=== PATIENT | female | born 1990 | race Caucasian/White ===

== ENCOUNTER 2017-06-26 09:42 | Emergency (ER) | payer BC ==
[2017-06-26 10:57] LABS: ABS Basophils 0 10^3/ul (0-0.2); ABS Eosinophils 0 10^3/ul (0-0.6); ABS Lymphocytes 0.8 10^3/ul (1.0-4.8); ABS Monocytes 0.3 10^3/ul (0-0.8); ABS Neutrophils 3.6 10^3/ul (1.5-7.7); ABS Nucleated RBC 0 10^3/ul; Eosinophil % 0.1 % (0-6); Hematocrit 43 % (35-47); Lymphocyte % 17.2 % (25-47); Mean Corpuscular HGB Conc 35 g/dl (31-36); Mean Corpuscular Hemoglobin 32 pg (27-31); Mean Corpuscular Volume 92 fL (80-97); Mean Platelet Volume 7.5 um3 (7.4-10.4); Nucleated Red Blood Cells % 0; Platelet Count 234 10^3/ul (150-450); Red Blood Count 4.72 10^6/ul (4.0-5.4); Red Cell Distribution Width 13 % (10.5-15); Urine Appearance Clear; Urine Blood Negative (Negative); Urine Color Straw; Urine Ketones Negative (Negative); Urine Protein Negative (Negative); Urine Specific Gravity 1.005 (1.010-1.030); Urine Urobilinogen Negative (Negative); White Blood Count 4.8 10^3/ul (3.5-10.8)
[2017-06-26] MEDS ORDERED: Iohexol 300* (CONTRAST) 10 ML SDV IV ONE (11:35)
[2017-06-26] MEDS ORDERED: Ketorolac INJ* 30 MG/ML 1 ML VIAL IV PUSH ONE (12:05)
--- NOTE | 2017-06-26 13:13 | RAD ---
CLINICAL HISTORY: Abdominal pain COMPARISON: May 09, 2017 TECHNIQUE: Multiple contiguous axial CT scans were obtained of the abdomen and pelvis after the administration of intravenous contrast. Coronal and sagittal multiplanar reformations are submitted for review. FINDINGS: LUNG BASES: The lung bases are clear. LIVER: The right lobe of liver is somewhat heterogeneous attenuation. This resolves on delayed images. BILE DUCTS: There is no intrahepatic or extrahepatic biliary dilatation. GALLBLADDER: The gallbladder is normal, without pericholecystic inflammatory change. PANCREAS: The pancreas is normal, without mass or ductal dilatation. SPLEEN: Normal in size and appearance. UPPER GI TRACT: Evaluation of the gastrointestinal tract is limited by incomplete gastric distention. The upper GI tract is unremarkable. SMALL BOWEL AND MESENTERY: The small bowel is normal in contour, course, and caliber. There is no obstruction or dilatation. COLON: The colon is normal in contour, course, caliber. There is no pericolonic inflammatory change. There is large amount of stool within the proximal and transverse colon. The distal colon is relatively decompressed. The appendix is not well-visualized. There is no inflammatory change within the right lower quadrant. ADRENALS: Normal bilaterally. KIDNEYS: The kidneys are normal in shape, size, contour, and axis. There is no hydronephrosis or nephrolithiasis. BLADDER: The bladder is smooth in contour. PELVIC ORGANS: The uterus and adnexa are grossly normal for technique. AORTA: The aorta is normal. IVC: Unremarkable LYMPH NODES: There is no lymphadenopathy by size criteria. ABDOMINAL WALL: There is no evidence for abdominal wall hernia. BONES AND SOFT TISSUES: Unremarkable OTHER: None IMPRESSION: 1. THE RIGHT LOBE OF THE LIVER IS MILDLY HETEROGENEOUS THAT RESOLVES ON DELAYED IMAGES, SUGGESTIVE OF A TRANSIENT HEPATIC ATTENUATION DIFFERENCE. THERE IS NO FOCAL HEPATIC PARENCHYMAL MASS. RECOMMEND CORRELATION WITH SERUM MARKERS OF HEPATIC DYSFUNCTION. 2. OTHERWISE UNREMARKABLE CT OF THE ABDOMEN AND PELVIS.
[2017-06-26 14:29] VITALS: BP 112/86
--- NOTE | 2017-06-28 10:56 | ED ---
Wei Putnam Angela, scribed for Froylan Perez MD on 06/26/17 at 1111 . Abdominal Pain/Female - HPI Summary HPI Summary: This pt is a 26 y/o female presenting to [facility] c/o intermittent left sided abd pain for approximately 6 months. Pt reports left abd pain radiates to her left sided back. She rates her pain 6/10 in severity. Pt notes the consistency of her stool is intermittent between loose and solid. She reports she has had approximately 3 bowel movements every day for the past week. Denies nausea, vomiting, constipation, diarrhea, fever. Last night pt states she had chills. LMP: 2 months ago, she reports she missed her last period. Denies chance of . Pt is not sexually active. - History of Current Complaint Chief Complaint: EDAbdPain Stated Complaint: ABD PAIN Time Seen by Provider: 06/26/17 09:46 Hx Obtained From: Patient Onset/Duration: Lasting Days, Still Present Timing: Days Severity Currently: Moderate Pain Intensity: 5 Pain Scale Used: 0-10 Numeric Location: Discrete At: LUQ Radiates: Yes Radiates to: Back - left sided Aggravating Factor(s): Nothing Alleviating Factor(s): Nothing Associated Signs and Symptoms: Positive: Other: - POS: chills last night. 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 Negative: Fever ENT: Negative Cardiovascular: Negative Positive: Abdominal Pain. Negative: Vomiting, Diarrhea, Nausea, Other - constipation Musculoskeletal: Negative Skin: Negative Neurological: Negative All Other Systems Reviewed And Are Negative: Yes Physical Exam - Summary Physical Exam Summary: VITAL SIGNS: Reviewed. GENERAL: Patient is a well-developed and nourished female who is lying comfortable in the stretcher. Patient is not in any acute respiratory distress. HEAD AND FACE: Normocephalic and atraumatic. EYES: PERRLA, EOMI x 2, No injected conjunctiva. EARS: Hearing grossly intact. Ear canals and tympanic membranes are WNL. MOUTH: Oropharynx within normal limits. NECK: Supple, trachea is midline, no adenopathy, no JVD. CHEST: Symmetric, no tenderness at palpation LUNGS: Clear to auscultation bilaterally. No wheezing or crackles. CVS: RRR, S1 and S2 present, no murmurs or gallops appreciated. ABDOMEN: Soft. Left upper quadrant tenderness. No signs of distention. Positive bowel sounds. No rebound no guarding, and no masses palpated. No abdominal bruit or pulsations. EXTREMITIES: FROM in all major joints, no edema, no cyanosis or clubbing. NEURO: Alert and oriented x 3. No acute neurological deficits. Speech is normal. SKIN: Dry and warm Triage Information Reviewed: Yes Vital Signs On Initial Exam: Initial Vitals Temp Pulse Resp BP Pulse Ox 99.8 F 79 14 119/84 100 06/26/17 09:46 06/26/17 09:46 06/26/17 09:46 06/26/17 09:46 06/26/17 09:46 Vital Signs Reviewed: Yes Diagnostics - Vital Signs Vital Signs Temp Pulse Resp BP Pulse Ox 06/26/17 09:46 99.8 F 79 14 119/84 100 - Laboratory Result Diagrams: 06/26/17 10:36 06/26/17 10:36 Lab Statement: Any lab studies that have been ordered have been reviewed, and results considered in the medical decision making process. - CT Abdomen/Pelvis CT CT Interpretation: Positive (See Comments) - IMPRESSION: 1. The right lobe of the liver is mildly heterogeneous that resolves on delayed images, suggestive of a transient hepatic attenuation difference. There is no focal hepatic parenchymal mass. Recommend correlation with serum markers of hepatic dysfunction. 2. Otherwise unremarkable CT of the abdomen and pelvis. Dr. Perez has reviewed this radiology report. CT Interpretation Completed By: Radiologist Re-Evaluation - Re-Evaluation First Eval Re-Evaluation Time: 14:22 Comment: I reviewed the lab and CT results with the pt. Pt will be discharged home. Abdominal Pain Fem Course/Dx - Course Course Of Treatment: This pt is a 26 y/o female presenting to [facility] c/o intermittent left sided abd pain for approximately 6 months. Pt reports left abd pain radiates to her left sided back. She rates her pain 6/10 in severity. Pt notes the consistency of her stool is intermittent between loose and solid. She reports she has had approximately 3 bowel movements every day for the past week. Denies nausea, vomiting, constipation, diarrhea, fever. Last night pt states she had chills. LMP: 2 months ago, she reports she missed her last period. Denies chance of . Pt is not sexually active. Test results without any significant abnormalities. Urinalysis is negative for UTI. Abdomen/ Pelvis CT shows 1. The right lobe of the liver is mildly heterogeneous that resolves on delayed images, suggestive of a transient hepatic attenuation difference. There is no focal hepatic parenchymal mass. Recommend correlation with serum markers of hepatic dysfunction. 2. Otherwise unremarkable CT of the abdomen and pelvis. In the ED course the pt was given Toradol for the pain. After this medication the pt is feeling better. Therefore she will be discharged to home with follow up from her PCP. I discussed all the findings and test results with the patient. All questions were answered to patient satisfaction. There were no further complaints or concerns. She is instructed to return to the ED for any worsening or new symptoms. Pt is hemodynamically stable, alert and oriented x3. - Diagnoses Provider Diagnoses: Abdominal pain, left upper quadrant, Left sided abdominal pain Discharge - Sign-Out/Discharge Documenting (check all that apply): Discharge - discharge to home - Discharge Plan Condition: Stable Disposition: HOME Patient Education Materials: Abdominal Pain (ED) Referrals: Anand Lee MD [Primary Care Provider] - 3 Days Additional Instructions: Please follow up with your primary care provider. RETURN TO THE ED FOR ANY NEW OR WORSENING SYMPTOMS. The documentation as recorded by the Wei campos Angela accurately reflects the service I personally performed and the decisions made by me, Froylan Perez MD.
== END 2017-06-26 14:27 | disposition home or self-care (01) ==
LOC: ED 09:42
DX: R10.12 Left upper quadrant pain (principal); R68.83 Chills (without fever); Z32.02 Encounter for pregnancy test, result negative; Z85.850 Personal history of malignant neoplasm of thyroid
CPT/HCPCS: 36415; 74177; 80053; 81003; 82550; 83690; 84702; 85025; 86140; 96374; 99282; J1885; Q9967

== ENCOUNTER 2018-09-30 17:01 | Emergency (ER) | payer BC ==
--- OUTSIDE RECORDS SUMMARY | 2018-09-30 17:32 | XMS REPORT | Continuity of Care Document ---
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 Anand Lee MD Primary Care Physician Unavailable Payers Date Identification Numbers Payment Provider Subscriber Policy Number: [id number] [facility] Marti Crenshaw PayID: [id number] [address] [place] [address] Family History Date Family Member(s) Observation Comments General Diabetes MGF, PGF General Obesity PGF General Congestive Heart Failure (CHF) MGM- d/t Social History Type Date Description Comments Sex Unknown Marital Status Single Occupation Currently Working [employer] [employer]) ETOH Use consumes 1-2 glasses of wine per day Tobacco Use Start: Unknown Patient has never smoked Recreational Drug Use Denies Drug Use Smoking Status Reviewed: 09/10/18 Patient has never smoked Exercise Type/Frequency Exercises regularly Allergies, Adverse Reactions, Alerts Active Allergies Reaction Severity Comments Date Nicotinamide Adenine Dinucleotide (Nad) 09/04/2018 Medications Active Medications SIG Qnty Indications Ordering Provider Date Omeprazole 1 by mouth Unknown 20mg Capsules DR every day Levothyroxine Sodium 1 by mouth Unknown 150mcg every day Tablets Loestrin 20 (21) 1 by mouth Unknown 1-20mg-mcg every day Tablets Zyrtec Allergy 1 by mouth Unknown 10mg Tablets every day prn Vital Signs Date Vital Result Comment 09/10/2018 8:42am Height 64 inches 5'4" Weight 115.00 lb with shoes BP Systolic 106 mmHg lue reg cuff BP Diastolic 64 mmHg lue reg cuff BP Systolic Sitting 106 mmHg lue reg cuff BP Diastolic Sitting 64 mmHg lue reg cuff BP Systolic Standing 100 mmHg lue reg cuff BP Diastolic Standing 62 mmHg lue reg cuff Respiratory Rate 12 /min BMI (Body Mass Index) 19.7 kg/m2 Ejection Fraction none noted Procedures Date Code Description Status 09/10/2018 99543 EKG Tracing & Interpretation Completed Encounters Type Date Location Provider Dx Diagnosis Office Visit 09/10/2018 [facility] Bryan Qureshi, R42 Dizziness and 9:00a Of [facility] DO FACC giddiness R07.9 Chest pain, unspecified R00.2 Palpitations Plan of Treatment Future Appointment(s):09/16/2018 8:00 am - Traveling ECHO 2 at [facility]09/23/2018 8:30 am - Bryan Qureshi DO FACC at [facility] AT [facility] [place]/10/2018 - Bryan Qureshi, DO [id number] Dizziness and giddinessNew Orders:Echocardiogram, Scheduled: 09/16/18Comments:Next episode you have of the palpitations, take your pulse over 1 minute and let me know if it is above 110 beats a minuteFollow up:please schedule treadmill at [facility] PRNR07.9 Chest pain, unspecifiedNew Orders:Stress Test, Treadmill, No Imaging, Scheduled: 09/23/18R00.2 Palpitations
--- OUTSIDE RECORDS SUMMARY | 2018-09-30 17:32 | XMS REPORT | Continuity of Care Document ---
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 Anand Lee MD Primary Care Physician Unavailable Payers Date Identification Numbers Payment Provider Subscriber Policy Number: [id number] [facility] Marti Crenshaw PayID: [id number] [address] [place] [address] Family History Date Family Member(s) Observation Comments General Diabetes MGF, PGF General Obesity PGF General Congestive Heart Failure (CHF) MGM- d/t Social History Type Date Description Comments Sex Unknown Marital Status Single Occupation Currently Working [employer]) ETOH Use consumes 1-2 glasses of wine [...] mouth Unknown 150mcg every day Tablets Loestrin 1/20 (21) 1 by mouth Unknown 1-20mg-mcg every [...] noted Procedures Date Code Description Status 09/10/2018 83455 EKG Tracing & Interpretation Completed Plan of Treatment Future Appointment(s):09/16/2018 8:00 am - Traveling ECHO 2 at [facility]09/23/2018 8:30 am - Bryan Qureshi, DO FACC at [facility] - Bryan Qureshi, DO [id number] Dizziness and giddinessNew Orders:Echocardiogram, Scheduled: 09/16/18Comments:Next episode you have of the palpitations, take your pulse over 1 minute and let me know if it is above 110 beats a minuteFollow up:please schedule treadmill at [facility] PRNR07.9 Chest pain, unspecifiedNew Orders:Stress Test, Treadmill, No Imaging, Scheduled: 09/23/18R00.2 Palpitations
[2018-09-30 17:38] VITALS: BP 116/79
--- NOTE | 2018-09-30 17:45 | UC ---
Shoulder Pain HPI - HPI Summary HPI Summary: 27 y/o female presents to the urgent care c/o RT posterior shoulder and clavicle pain s/p heavy lifting today around 1230pm at work. Pt reports she reached out over desk with right arm and lift something heavy ahe she heard a pop. She applied ice w/o any improvement. She has not taken any medication for pain, Pt states pain is worse w/ touch or moving her Rt arm to the back. Pt denies numbness or tingling sensation over the RT arm or previous injury. Pt denies fever, SOB, chest pain,abdominal pain, N/V/D. LMP: 60 days ago. But she declines test. - History of Current Complaint Chief Complaint: UCUpperExtremity Stated Complaint: R SHOULDER INJURY Time Seen by Provider: 09/30/18 17:29 Hx Obtained From: Patient Hx Last Menstrual Period: 60 days ?: No - Pt declines test Onset/Duration: Sudden Onset, Lasting Hours - 2 hrs Timing: Constant Severity Initially: Moderate Severity Currently: Moderate Location Of Pain: Is Discrete @ - RT shoulder and RT sternoclavicular pain, Radiates To - posterior shoulder Pain Intensity: 6 Pain Scale Used: 0-10 Numeric Character: Sharp, Spasmodic Aggravating Factor(s): Movement, Lifting, External Rotation Alleviating Factor(s): Rest, Ice Associated Signs And Symptoms: Positive: Negative. Negative: Swelling, Redness , Bruising, Numbness/Tingling Related History: Dominant Hand Right - Risk Factors Non-Orthopedic Risk Factor: Negative DVT Risk Factors: Negative Septic Arthritis Risk Factor: Negative - Allergies/Home Medications Allergies/Adverse Reactions: Allergies Allergy/AdvReac Type Severity Reaction Status Date / Time Nicotinamide Adenine Allergy Severe Unknown Uncoded 09/30/18 17:38 Dinucleotide Reaction Details PMH/Surg Hx/FS Hx/Imm Hx Previously Healthy: Yes - Pt denies PMHX - Surgical History Surgical History: Yes Surgery Procedure, Year, and Place: THYROIDECTOMY - Family History Known Family History: Positive: None - Pt denies FMHX Negative: Cardiac Disease, Hypertension, Diabetes - Social History Occupation: Employed Full-time Lives: With Family Alcohol Use: Occasionally Substance Use Type: None Smoking Status (MU): Never Smoked Tobacco Review of Systems All Other Systems Reviewed And Are Negative: Yes Constitutional: Positive: Negative Skin: Positive: Negative Eyes: Positive: Negative ENT: Positive: Negative Respiratory: Positive: Negative Cardiovascular: Positive: Negative Gastrointestinal: Positive: Negative Genitourinary: Positive: Negative Motor: Positive: Negative Neurovascular: Positive: Negative Musculoskeletal: Positive: Decreased ROM - RT shoulder, Other: - RT shoulder pain and RT sternoclavicualr joint pain s/p heavy lifiting Neurological: Positive: Negative Psychological: Positive: Negative Is Patient Immunocompromised?: No Physical Exam - Summary Physical Exam Summary: Vital Signs Reviewed: Yes GENERAL: Well-Appearing, No Pain Distress, Well-Nourished - female w/o any apparent pain distress Eyes: Positive: Conjunctiva Clear - PERRL,EOMI ENT: Positive: Normal ENT inspection, Hearing grossly normal, Pharyngeal erythema - mild, Nasal drainage - clear, Uvula midline Neck: Positive: Supple, Nontender, No Lymphadenopathy Respiratory: Positive: Chest non-tender, Lungs clear, Normal breath sounds, No respiratory distress Cardiovascular: Positive: RRR, No Murmur, Pulses Normal, Brisk Capillary Refill Abdomen Description: Positive: Nontender, No Organomegaly, Soft. Negative: CVA Tenderness (R), CVA Tenderness (L) Bowel Sounds: Positive: Present Musculoskeletal: RTshoulder: The RTshoulder is with/without obvious asymmetry or deformity when compared to the L shoulder. NO ecchymosis and bruising, no crepitus. No bony deformity or prominence of humeral head. No erythema, warmth. n o scapula. positive tenderness over Acromioclavicular joint and RT side sternoclavicualar joint w/ mild soft tissue swelling, NT to palpation of the bicipital groove . NT to palpation of the muscles of the sternocleidomastoid, pectoralis, biceps/triceps, deltoid, trapezius, . Limited ROM due to pain especially in adduction and abduction.on both passive and active, internal/ external rotation, flexion/extension. "empty can and drop arm test unable to perform due to pain. No axillary tenderness or lymphadenopathy. Normal sensation over the deltoid and fingers. Distal motor and neurovascular status is intact. Neurological Exam: Normal Psychological Exam: Normal Skin Exam: Normal Triage Information Reviewed: Yes Vital Signs: Initial Vital Signs Temp 99.8 F 09/30/18 17:32 Pulse 85 09/30/18 17:32 Resp 16 09/30/18 17:32 BP 116/79 09/30/18 17:32 Pulse Ox 98 09/30/18 17:32 Shoulder Course/Dx - Course Course Of Treatment: 27 y/o female presents to the urgent care c/o RT posterior shoulder and clavicle pain s/p heavy lifting today around 1230pm at work. Pt reports she reached out over desk with right arm and lift something heavy ahe she heard a pop. She applied ice w/o any improvement. She has not taken any medication for pain, Pt states pain is worse w/ touch or moving her Rt arm to the back. Pt denies numbness or tingling sensation over the RT arm or previous injury. Pt denies fever, SOB, chest pain,abdominal pain, N/V/D. LMP: 60 days ago. But she declines test. Hx obtained. Pt w/ tenderness to palpation over the sternoclavicular joint w/ mild soft tissue swelling and decrease ROM of RT shoulder on examination. RT shoulder and RT sternoclavicular joint X-ray ordered , IMPRESSION: No fracture of the right shoulder is noted as per radiologist. Pt w/ possible RT shoulder sprain. Pt declined medications for pain. Pt advised to take Ibuprofen PO q6-8hrs prn for pain and swelling. Rt Shoulder immobilized with a shoulder sling for 3-4 days. Advised to f/u with Orthopedic DR Snow or Sports Medicine referral in 3 days if not improvement of symptoms. D/c instructions explained. Pt understood and agreed w/ plan of care. - Differential Dx/Diagnosis Differential Diagnosis/HQI/PQRI: AC Separation, Contusion, Fracture (Closed), Rotator Cuff Injury, Sprain, Strain, Tendonitis Provider Diagnosis: Pain of right sternoclavicular joint, Sprain of right shoulder Discharge - Sign-Out/Discharge Documenting (check all that apply): Patient Departure - D/C home All imaging exams completed and their final reports reviewed: Yes - Discharge Plan Condition: Stable Disposition: HOME Patient Education Materials: Shoulder Sprain (ED) Forms: *Work Release Referrals: Anand Lee MD [Primary Care Provider] - 3 Days Jumana Snow MD [Medical Doctor] - 3 Days [facility] [Provider Group] - 3 Days Additional Instructions: 1-Please take Ibuprofen PO q6-8hrs prn after meals as directed to alleviate pain and swelling. 2-Please apply ice, keep your shoulder immobilized with the shoulder sling for 3-4 days and then resume movement slowly 3- Please f/u with Orthopedic Dr Snow or Sports Medicine in 3 days for further evaluation and treatment on your Rt shoulder sprain. - Billing Disposition and Condition Condition: STABLE Disposition: Home
== END 2018-09-30 18:43 | disposition home or self-care (01) ==
LOC: UCEAST 17:01
DX: S43.401A Unspecified sprain of right shoulder joint, initial encounter (principal); X50.0XXA Overexertion from strenuous movement or load, initial encounter; Y92.89 Other specified places as the place of occurrence of the external cause; E89.0 Postprocedural hypothyroidism
CPT/HCPCS: 71130; 99212; G0463

== ENCOUNTER 2018-12-09 05:41 | Emergency (ER) | payer BC, OTHER ==
[2018-12-09] MEDS ORDERED: LORazepam INJ* 2 MG/ML 1 ML VIAL IV PUSH ONE (06:38)
[2018-12-09] MEDS ORDERED: Lorazepam PYXIS KEY PRN (06:38)
[2018-12-09] MEDS ORDERED: Lorazepam PYXIS KEY ONE (06:41)
[2018-12-09] MEDS ORDERED: LORazepam INJ* 2 MG/ML 1 ML VIAL ONE (06:42)
[2018-12-09 06:51] LABS: ABS Basophils 0.1 10^3/ul (0-0.2); ABS Eosinophils 0.1 10^3/ul (0-0.6); ABS Lymphocytes 1.4 10^3/ul (1.0-4.8); ABS Monocytes 0.5 10^3/ul (0-0.8); ABS Neutrophils 3.1 10^3/ul (1.5-7.7); Eosinophil % 1.3 %; Hematocrit 44 % (35-47); Hemoglobin 15.4 g/dL (12.0-16.0); Mean Corpuscular HGB Conc 35 g/dL (31-36); Mean Corpuscular Hemoglobin 32 pg (27-31); Mean Corpuscular Volume 90 fL (80-97); Mean Platelet Volume 7.7 fL (7.4-10.4); Platelet Count 237 10^3/uL (150-450); Red Blood Count 4.86 10^6 /uL (3.70-4.87); Red Cell Distribution Width 13 % (10-15); White Blood Count 5.1 10^3/uL (3.5-10.8)
--- NOTE | 2018-12-09 06:51 | ED ---
Palpitations / Dysrhythmia - HPI Summary HPI Summary: This patient is a 28-year-old female who presents to the ED with chief complaint of "just not feeling right." She states she woke this morning and had to use the restroom. After having a bowel movement, she began to feel "off " and states her heart started racing and she became lightheaded and having numbness and tingling into her bilateral upper extremities. She was able to wake her roommate and needed help up the stairs d/t the amount of tingling and heart racing. She states she was breathing heavily and had a heavy chest at this time. Sxs have improved on arrival. Recent cardiac stress test and has seen Dr. Herman 2 mos ago. Currently a patient of Dr. Lee. Sxs are infrequent, but have been present x 6 mos +. Currently on OCP's, no recent travel, hx of PE or DVT or smoking hx. Drinks 2 glasses wine per day and 1 cup of coffee. No personal hx of cardiac disease. No family members at early age. 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 Current medications include levothyroxine, hydroxyzine, certrizine No current dx of anxiety or depression. - History of Current Complaint Chief Complaint: EDChestPainROMI Time Seen by Provider: 12/09/18 06:30 Hx Obtained From: Patient Onset/Duration: Sudden Onset Timing: Constant Severity Initially: Moderate Severity Currently: Mild Character: Fast Associated Signs & Symptoms: Negative - Risk Factors Cardiac: Negative Pulmonary Embolism: Negative Atrial Fibrillation: Negative - Allergy/Home Medications Allergies/Adverse Reactions: Allergies Allergy/AdvReac Type Severity Reaction Status Date / Time Nicotinamide Adenine Allergy Severe Unknown Uncoded 09/30/18 17:38 Dinucleotide Reaction Details Home Medications: Home Medications hydrOXYzine HCL TAB* [Atarax 25 MG TAB*] 50 mg PO BEDTIME PRN 12/09/18 [History Confirmed 12/09/18] PMH/Surg Hx/FS Hx/Imm Hx Previously Healthy: Yes Endocrine/Hematology History: Reports: Hx Thyroid Disease Denies: Hx Diabetes Cardiovascular History: Reports: Hx Angina Denies: Hx Coronary Artery Disease, Hx Hypercholesterolemia, Hx Hypertension , Hx Myocardial Infarction, Hx Pacemaker/ICD Respiratory History: Denies: Hx Asthma, Hx Chronic Obstructive Pulmonary Disease (COPD) History: Denies: Hx Chronic Renal Failure, Hx Renal Disease - Cancer History Cancer Type, 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 - Surgical History Surgery Procedure, Year, and Place: THYROIDECTOMY - Immunization History Hx Pertussis Vaccination: No Immunizations Up to Date: Yes Infectious Disease History: No Infectious Disease History: Denies: Traveled Outside the [place] in Last 30 Days - Family History Known Family History: Positive: None - Pt denies FMHX Negative: Cardiac Disease, Hypertension, Diabetes - Social History Occupation: Employed Full-time Lives: Dormitory/Roommates Alcohol Use: Occasionally Hx Substance Use: No Substance Use Type: Reports: None Hx Tobacco Use: No Smoking Status (MU): Never Smoked Tobacco Review of Systems Constitutional: Negative Negative: Fever, Chills, Fatigue, Skin Diaphoresis Positive: Palpitations Negative: Shortness Of Breath, Cough Negative: Abdominal Pain, Vomiting, Diarrhea, Nausea Genitourinary: Negative Positive: no symptoms reported, see HPI Negative: Arthralgia, Myalgia Skin: Negative All Other Systems Reviewed And Are Negative: Yes Physical Exam Triage Information Reviewed: Yes Vital Signs On Initial Exam: Initial Vitals Temp Pulse Resp BP Pulse Ox 99 F 74 16 126/98 100 12/09/18 06:01 12/09/18 06:01 12/09/18 06:01 12/09/18 06:01 12/09/18 06:01 Vital Signs Reviewed: Yes Appearance: Positive: Well-Appearing, Well-Nourished Skin: Positive: Warm, Skin Color Reflects Adequate Perfusion Head/Face: Positive: Normal Head/Face Inspection Eyes: Positive: EOMI, RANDY, Conjunctiva Clear Neck: Positive: Supple, No Lymphadenopathy Respiratory/Lung Sounds: Positive: Clear to Auscultation, Breath Sounds Present Cardiovascular: Positive: RRR, Pulses are Symmetrical in both Upper and Lower Extremities. Negative: Bradycardia, Tachycardia, Leg Edema Left, Leg Edema Right Musculoskeletal: Positive: Normal, Strength/ROM Intact Neurological: Positive: Sensory/Motor Intact, Alert, Oriented to Person Place, Time Psychiatric: Positive: Anxious - tearful Diagnostics - Vital Signs Vital Signs Temp Pulse Resp BP Pulse Ox 12/09/18 06:44 18 12/09/18 06:01 99 F 74 16 126/98 100 - Laboratory Result Diagrams: 12/09/18 06:13 12/09/18 06:13 Lab Statement: Any lab studies that have been ordered have been reviewed, and results considered in the medical decision making process. Course/Dx - Course Course Of Treatment: On arrival into the ED, the patient is c/o chest pressure as well as bilateral upper extremity tingling. She states she has had this in the past and is unsure the cause. She is tearful on arrival and states she hates feeling this way. She is also stating when she thinks about these sxs ( as she is currently), the tingling sensation becomes worse and also c/o difficutly breathing. She has had a recent stress test through Dr. herman's office for similar sensation. Labs obtained including trop = 0.00. TSH = 5.72. Lungs CTA, RRR, no abd tenderness throughout. Pt appears well, but anxious. EKG shows NSR. She is given ativan and states she feels groggy on re- examination. Labs otherwise WNL. Discussed with pt sxs of anxiety. She has also had a negative cardiac workup through Dr. Kramer office. She is concerned it might be a "stomach issue," stating she has had more abd pain intermittently throughout the last few weeks. Has had previous workups for abd pain in the past and has been dx with IBS. She is encouraged to continue to take hydroxyzine for any anxiety sxs. Assured patient this does not appear to be cardiac related, however if the symptoms persist of heart racing, she will f/ u again with Dr. Herman. She is encouraged rest today and is given note for work. She is dx with anxiety. - Diagnoses Differential Diagnosis/HQI/PQRI: Positive: Other - heart palpitations, anxiety attack, IBS Provider Diagnoses: Anxiety Discharge ED - Sign-Out/Discharge Documenting (check all that apply): Patient Departure Patient Received Moderate/Deep Sedation with Procedure: No - Discharge Plan Condition: Stable Disposition: HOME Forms: *Work Release Referrals: Bobby Hartman MD [Medical Doctor] - Anand Lee MD [Primary Care Provider] - Additional Instructions: Please follow up with your PCP If you develop any worsening or changing symptoms, return to the ED Continue your hydroxyzine if you continue to have these symptoms and sleep if possible Follow up with GI if you develop any worsening abdominal pain - Billing Disposition and Condition Condition: STABLE Disposition: Home
[2018-12-09 07:08] LABS: Albumin 4.8 g/dL (3.2-5.2); Albumin/Globulin Ratio 1.6 (1-3); BUN/Creatinine Ratio 17.1 (8-20); Calcium 8.8 mg/dL (8.6-10.3); EGFR African American 100.4 (>60); Potassium 3.3 mmol/L (3.5-5.0); Total Bilirubin 0.5 mg/dL (0.2-1.0); Total Protein 7.8 g/dL (6.4-8.9)
[2018-12-09 08:14] VITALS: BP 125/78
== END 2018-12-09 08:15 | disposition home or self-care (01) ==
LOC: ED 05:41
DX: F41.9 Anxiety disorder, unspecified (principal); E07.9 Disorder of thyroid, unspecified; Z85.850 Personal history of malignant neoplasm of thyroid; Z88.8 Allergy status to other drugs, medicaments and biological substances; Z79.899 Other long term (current) drug therapy
CPT/HCPCS: 36415; 80053; 84443; 84484; 85025; 93005; 96374; 99282; J2060

== ENCOUNTER 2019-01-16 17:00 | Emergency (ER) | payer OTHER ==
--- OUTSIDE RECORDS SUMMARY | 2019-01-16 17:23 | XMS REPORT | Continuity of Care Document ---
:1990 External Reference #:[id number] Author Name Anand Lee M.D. Address [address] [facility] [address] [place] [address] Care Team Providers Name Role Phone HCP given Care Team Information Block Handler Unavailable [facility] - Care Team Information Block Handler [phone] G[facility] Care Team Information Block Handler [phone] [facility], Care Team Information Block Handler Cardiovascular Problems Active Problems Provider Date Panic disorder without agoraphobia Anand Lee M.D. Onset: 12/10/2018 Postoperative hypothyroidism Anand Lee M.D. Onset: 12/27/2016 History of malignant neoplasm of thyroid Anand Lee M.D. Onset: 2016 Anxiety state Anand Lee M.D. Onset: 12/27/2016 Social History Type Date Description Comments Sex Unknown Tobacco Use Reviewed: 08/18/16 Never Smoked Cigarettes Smoking Status Reviewed: 08/18/16 Never Smoked Cigarettes ETOH Use Currently consumes 1-2 glasses of alcohol wine/night; 6-7 glasses 1 night/mo Exercise Exercises regularly runs or cycles daily, Type/Frequency hikes, does some weights. Allergies, Adverse Reactions, Alerts Active Allergies Reaction Severity Comments Date Nicotinamide joint pain and muscle stiffness 08/18/2016 Medications Active Medications SIG Qnty Indications Ordering Provider Date Escitalopram Oxalate 1/2 by mouth 30tabs F41.0 Anand Lee, 12/10/2018 10mg every day for 1 M.D. Tablets week then 1 tablet daily; for mood F41.9 Clonazepam 1/4-1 by mouth three 10tabs F41.0 Anand Lee, 12/10/2018 0.5mg times a day as needed M.D. Tablets for anxiety/panic F41.9 Levoxyl take 1 tablet every 90tabs E89.0 Anand Lee, 12/09/2018 175mcg Tablets morning on empty M.D. stomach; for thyroid Hydroxyzine HCL 1-2 tablets up to 30tabs F41.9 Anand Lee, 12/04/2018 25mg every 6 hrs as M.D. Tablets needed for anxiety, sleep G47.00 Omeprazole 20mg 1 by mouth every day R10.12 Unknown 08/13/2018 Capsules R07.9 Loestrin Fe 04/07 1 tablet daily, as 84tabs Anand Lee, 02/27/2017 1-20mg-mcg directed, for M.D. Tablets menstrual cycle regulation and acne Zyrtec Allergy 1 by mouth every day Unknown 08/17/2016 10mg Tablets as needed for congestion/chest pressure d/t seasonal allergies Immunizations CPT Code Status Date Vaccine Lot # [id number] Given 12/10/2018 Influenza Virus Vaccine, Quadrivalent, Split, [id number] Preservative Free 73936 Given 11/28/2017 Influenza Virus Vaccine, Quadrivalent, Split, Preservative Free 80551 Given 09/10/2017 Adacel or Boostrix, TDaP [id number] 24487 Given 12/27/2016 Influenza Virus Vaccine, Quadrivalent, Split, [id number] Preservative Free 06434 Given 03/17/2009 Gardasil HPV vaccine 40035 Given 11/05/2008 Gardasil HPV vaccine 94977 Given 09/04/2008 Menactra Menningitis Vaccine 76722 Given 09/04/2008 Gardasil HPV vaccine 17927 Given 07/28/2005 Adacel or Boostrix, TDaP 03481 Given 11/05/1998 MMR Virus Immunization 52251 Given 11/07/1995 Poliomyelitis Immunization 72583 Given 11/07/1995 Dtap Immunization (Tripedia) (Infanrix) 94763 Given 07/29/1993 Hep B Immunization, Ped/Adolescent To 11 Yrs 39774 Given 03/23/1993 Hep B Immunization, Ped/Adolescent To 11 Yrs 21965 Given 02/09/1993 Hep B Immunization, Ped/Adolescent To 11 Yrs 67910 Given 05/06/1992 Poliomyelitis Immunization 84417 Given 05/06/1992 Dtap Immunization (Tripedia) (Infanrix) 52360 Given 03/16/1992 MMR Virus Immunization 49196 Given 03/16/1992 Hib 4 Dose, Acthib 98281 Given 05/21/1991 Dtap Immunization (Tripedia) (Infanrix) 22061 Given 05/21/1991 Hib 4 Dose, Acthib 87927 Given 04/18/1991 Dtap Immunization (Tripedia) (Infanrix) 13689 Given 03/31/1991 Poliomyelitis Immunization 06526 Given 03/31/1991 Hib 4 Dose, Acthib 91377 Given 01/15/1991 Poliomyelitis Immunization 89534 Given 01/15/1991 Dtap Immunization (Tripedia) (Infanrix) 21111 Given 01/15/1991 Hib 4 Dose, Acthib Vital Signs Date Vital Result Comment 12/10/2018 4:34pm BP Systolic 110 mmHg BP Diastolic 68 mmHg Weight 120.00 lb w/shoes 08/14/2018 10:49pm BP Systolic 122 mmHg BP Diastolic 80 mmHg Heart Rate 76 /min reg Respiratory Rate 12 /min not laboured O2 % BldC Oximetry 9394 % on R/A, same after brisk walking Height 64.5 inches 5'4.50" Weight 115.00 lb BMI (Body Mass Index) 19.4 kg/m2 Results Test Date Facility Test Result H/L Range Note Automated blood N2N/CCD Import Automated blood 0.0 nucleated 019 nucleated erythrocytes erythrocytes detection detection Serum or plasma N2N/CCD Import Serum or plasma 138 135-145 sodium measurement 019 sodium measurement mmol/L (moles/volume) (moles/volume) Serum or plasma N2N/CCD Import Serum or plasma 3.3 3.5-5.0 potassium 019 potassium mmol/L measurement measurement (moles/volum (moles/volume) Serum or plasma N2N/CCD Import Serum or plasma 102 101-111 chloride 019 chloride mmol/L measurement measurement (moles/volume (moles/volume) Serum or plasma N2N/CCD Import Serum or plasma 25 mmol/L 22-32 carbon dioxide, 019 carbon dioxide, total measurement total measurement (moles/volume) Serum or plasma N2N/CCD Import Serum or plasma 11 mmol/L 2-11 anion gap 019 anion gap Serum glucose N2N/CCD Import Serum glucose 93 mg/dL 70-100 measurement 019 measurement (mass/volume) (mass/volume) Serum or plasma N2N/CCD Import Serum or plasma 14 mg/dL 6-24 urea nitrogen 019 urea nitrogen measurement measurement (mass/vo (mass/volume) Serum or plasma N2N/CCD Import Serum or plasma 0.82 0.51-0.9 creatinine 019 creatinine mg/dL 5 measurement measurement (mass/volum (mass/volume) Serum or plasma N2N/CCD Import Serum or plasma 17.1 8-20 urea 019 urea nitrogen/creatinine nitrogen/creatinine ratio ratio Serum or plasma N2N/CCD Import Serum or plasma 8.8 mg/dL 8.6- 10.3 calcium measurement 019 calcium measurement (mass/volume) (mass/volume) Serum total protein N2N/CCD Import Serum total protein 7.8 g/dL 6.4-8.9 measurement 019 measurement (mass/volume) (mass/volume) Serum or plasma N2N/CCD Import Serum or plasma 4.8 g/dL 3.2-5.2 albumin measurement 019 albumin measurement by bromocresol by bromocresol green (BCG) dye binding method (ma Lab Results N2N/CCD Import Globulin 3.0 g/dL 2-4 019 Serum or plasma N2N/CCD Import Serum or plasma 1.6 1-3 albumin/globulin 019 albumin/globulin mass ratio mass ratio Serum or plasma N2N/CCD Import Serum or plasma 0.50 0.2-1.0 total bilirubin 019 total bilirubin mg/dL measurement (mass/ measurement (mass/volume) Serum or plasma N2N/CCD Import Serum or plasma 40 U/L 34-104 alkaline 019 alkaline phosphatase phosphatase measurement ( measurement (enzymatic activity/volume) Serum or plasma N2N/CCD Import Serum or plasma 18 U/L 7-52 alanine 019 alanine aminotransferase aminotransferase measureme measurement (enzymatic activity/volume) Serum or plasma N2N/CCD Import Serum or plasma 19 U/L 13-39 aspartate 019 aspartate aminotransferase aminotransferase measure measurement (enzymatic activity/volume) Serum or plasma N2N/CCD Import Serum or plasma 0.00 troponin i.cardiac 019 troponin i.cardiac ng/mL measurement (ma measurement (mass/volume) Estimated N2N/CCD Import Estimated 83.0 glomerular 019 glomerular filtration rate filtration rate (GFR) non-Afr (GFR) non- Lab Results N2N/CCD Import Estimated GFR 100.4 019 () Serum or plasma N2N/CCD Import Serum or plasma 5.72 0.34-5.6 thyroid stimulating 019 thyroid stimulating mcIU/mL 0 hormone (TSH) hormone (TSH) measurement (units/volume) CBC Auto Diff [facility] White Blood Count 5.1 Normal 3.5- 10.8 019 [phone] 10^3/uL Red Blood Count 4.86 10^6/uL Normal 3.70-4.87 Hemoglobin 15.4 g/dL Normal 12.0-16.0 Hematocrit 44 % Normal 35-47 Mean Corpuscular Volume 90 fL Normal 80-97 Mean Corpuscular Hemoglobin 32 pg High 27-31 Mean Corpuscular HGB Conc 35 g/dL Normal 31-36 Red Cell Distribution Width 13 % Normal 10-15 Platelet Count 237 10^3/uL Normal 150-450 Mean Platelet Volume 7.7 fL Normal 7.4-10.4 Abs Neutrophils 3.1 10^3/uL Normal 1.5-7.7 Abs Lymphocytes 1.4 10^3/uL Normal 1.0-4.8 Abs Monocytes 0.5 10^3/uL Normal 0-0.8 Abs Eosinophils 0.1 10^3/uL Normal 0-0.6 Abs Basophils 0.1 10^3/uL Normal 0-0.2 Abs Nucleated RBC 0.0 10^3/uL Granulocyte % 60.1 % Lymphocyte % 27.0 % Monocyte % 10.4 % Eosinophil % 1.3 % Basophil % 1.2 % Nucleated Red Blood Cells % 0.0 Comp Metabolic Panel 12/09/2018 [facility] Sodium 138 mmol/L Normal 135-145 [phone] Potassium 3.3 mmol/L Low 3.5-5.0 Chloride 102 mmol/L Normal 101-111 Co2 Carbon Dioxide 25 mmol/L Normal 22-32 Anion Gap 11 mmol/L Normal 2-11 Glucose 93 mg/dL Normal 70-100 Blood Urea Nitrogen 14 mg/dL Normal 6-24 Creatinine 0.82 mg/dL Normal 0.51-0.95 BUN/Creatinine Ratio 17.1 Normal 8-20 Calcium 8.8 mg/dL Normal 8.6-10.3 Total Protein 7.8 g/dL Normal 6.4-8.9 Albumin 4.8 g/dL Normal 3.2-5.2 Globulin 3.0 g/dL Normal 2-4 Albumin/Globulin Ratio 1.6 Normal 1-3 Total Bilirubin 0.50 mg/dL Normal 0.2-1.0 Alkaline Phosphatase 40 U/L Normal 34-104 Alt 18 U/L Normal 7-52 Ast 19 U/L Normal 13-39 Egfr Non- 83.0 >60 Egfr 100.4 >60 1 Laboratory test 12/09/2018 [facility] Troponin-I (TnI) 0.00 ng/mL < 0.04 2 finding [phone] TSH (Thyroid Stim Horm) 5.72 mcIU/mL High 0.34-5.60 Automated blood 12/09/2018 N2N/CCD Import Automated blood 5.1 3.5-10.8 leukocytes count leukocytes count 10^3/uL corrected for corrected for nuc nucleated erythrocytes (number/volume) Automated blood 12/09/2018 N2N/CCD Import Automated blood 4.86 3.70- 4.87 erythrocyte erythrocyte count 10^6/uL count (number/volume) (number/volume) Blood hemoglobin 12/09/2018 N2N/CCD Import Blood hemoglobin 15.4 g/dL 12.0-16.0 measurement measurement (mass/volume) (mass/volume) Automated blood 12/09/2018 N2N/CCD Import Automated blood 44 % 35-47 hematocrit hematocrit (percentage) (percentage) Automated 12/09/2018 N2N/CCD Import Automated 90 fL 80-97 erythrocyte mean erythrocyte mean corpuscular corpuscular volume volume Automated 12/09/2018 N2N/CCD Import Automated 32 pg 27-31 erythrocyte mean erythrocyte mean corpuscular corpuscular hemoglobin hemoglobin (mass per erythrocyte) Automated 12/09/2018 N2N/CCD Import Automated 35 g/dL 31-36 erythrocyte mean erythrocyte mean corpuscular corpuscular hemoglobin hemoglobin concentration measurement (mass/vol Automated 12/09/2018 N2N/CCD Import Automated 13 % 10-15 erythrocyte erythrocyte distribution distribution width width ratio ratio Automated blood 12/09/2018 N2N/CCD Import Automated blood 237 150-450 platelet count platelet count 10^3/uL (number/volume) (number/volume) Automated blood 12/09/2018 N2N/CCD Import Automated blood 1.2 % basophils/100 basophils/100 leukocytes leukocytes Automated blood 12/09/2018 N2N/CCD Import Automated blood 1.3 % eosinophils/100 eosinophils/100 leukocytes leukocytes Automated blood 12/09/2018 N2N/CCD Import Automated blood 10.4 % monocytes/100 monocytes/100 leukocytes leukocytes Automated blood 12/09/2018 N2N/CCD Import Automated blood 27.0 % lymphocytes/100 lymphocytes/100 leukocytes leukocytes Automated blood 12/09/2018 N2N/CCD Import Automated blood 60.1 % neutrophils/100 neutrophils/100 leukocytes leukocytes Blood nucleated 12/09/2018 N2N/CCD Import Blood nucleated 0.0 erythrocytes erythrocytes 10^3/ul automated count automated count (numb (number/volume) Automated blood 12/09/2018 N2N/CCD Import Automated blood 0.1 0-0.2 basophil count basophil count 10^3/ul (number/volume) (number/volume) Automated blood 12/09/2018 N2N/CCD Import Automated blood 0.1 0-0.6 eosinophil count eosinophil count 10^3/ul (number/volume) (number/volume) Blood monocytes 12/09/2018 N2N/CCD Import Blood monocytes 0.5 0-0.8 automated count automated count 10^3/ul (number/volume) (number/volume) Blood 12/09/2018 N2N/CCD Import Blood lymphocytes 1.4 1.0-4.8 lymphocytes automated count 10^3/ul automated count (number/volume) (number/volume) CT biopsy liver 12/09/2018 N2N/CCD Import CT biopsy liver 3.1 1.5-7.7 10^3/ul Automated blood 12/09/2018 N2N/CCD Import Automated blood 7.7 fL 7.4- 10.4 platelet mean platelet mean volume volume measurement measurement Laboratory test 08/16/2018 [facility] Creatine 93 U/L Normal 10-223 finding [phone] Kinase(CK) Aldolase 4.6 U/L <7.7 3 CBC Auto Diff 08/16/2018 [facility] White Blood 5.4 10^3/uL Normal 3.5-10.8 [phone] Count Red Blood Count 4.55 10^6/uL Normal 3.70-4.87 Hemoglobin 14.3 g/dL Normal 12.0-16.0 Hematocrit 42 % Normal 35-47 Mean Corpuscular Volume 92 fL Normal 80-97 Mean Corpuscular Hemoglobin 32 pg High 27-31 Mean Corpuscular HGB Conc 34 g/dL Normal 31-36 Red Cell Distribution Width 13 % Normal 10.5-15 Platelet Count 220 10^3/uL Normal 150-450 Mean Platelet Volume 8.3 fL Normal 7.4-10.4 Abs Neutrophils 4.1 10^3/uL Normal 1.5-7.7 Abs Lymphocytes 0.9 10^3/uL Low 1.0-4.8 Abs Monocytes 0.3 10^3/uL Normal 0-0.8 Abs Eosinophils 0.0 10^3/uL Normal 0-0.6 Abs Basophils 0.1 10^3/uL Normal 0-0.2 Abs Nucleated RBC 0.0 10^3/uL Granulocyte % 75.8 % Lymphocyte % 16.2 % Monocyte % 6.4 % Eosinophil % 0.7 % Basophil % 0.9 % Nucleated Red Blood Cells % 0.1 Laboratory test 08/16/2018 [facility] Erythrocyte Sed 1 mm/Hr Normal 0-19 finding [phone] Rate C Reactive Protein 1.30 mg/L Normal <8.01 Comp Metabolic Panel 08/16/2018 [facility] Sodium 138 mmol/L Normal 135-145 [phone] Potassium 5.0 mmol/L Normal 3.5-5.0 Chloride 105 mmol/L Normal 101-111 Co2 Carbon Dioxide 26 mmol/L Normal 22-32 Anion Gap 7 mmol/L Normal 2-11 Glucose 94 mg/dL Normal 70-100 Blood Urea Nitrogen 17 mg/dL Normal 6-24 Creatinine 0.84 mg/dL Normal 0.51-0.95 BUN/Creatinine Ratio 20.2 High 8-20 Calcium 8.7 mg/dL Normal 8.6-10.3 Total Protein 6.8 g/dL Normal 6.4-8.9 Albumin 4.3 g/dL Normal 3.2-5.2 Globulin 2.5 g/dL Normal 2-4 Albumin/Globulin Ratio 1.7 Normal 1-3 Total Bilirubin 0.60 mg/dL Normal 0.2-1.0 Alkaline Phosphatase 33 U/L Low 34-104 Alt 16 U/L Normal 7-52 Ast 17 U/L Normal 13-39 Egfr Non- 81.3 >60 Egfr 98.4 >60 4 Laboratory test 08/16/2018 [facility] Anti Nuclear 0.3 U 5 finding [phone] Antibody Laboratory test 08/13/2018 [facility] TSH (Thyroid 0.41 Normal 0.34- 5. finding [phone] Stim Horm) mcIU/mL 60 1 Because ethnic data is not always readily available, this report includes an eGFR for both -Americans and non- Americans. The National Kidney Disease Education Program (NKDEP) does not endorse the use of the MDRD equation for patients that are not between the ages of 18 and 70, are , have extremes of body size, muscle mass, or nutritional status, or are non- or non-. According to the National Kidney Foundation, irrespective of diagnosis, the stage of the disease is based on the level of kidney function: Stage Description GFR(mL/min/1.73 m(2)) 1 Kidney damage with normal or decreased GFR 90 2 Kidney damage with mild decrease in GFR 60-89 3 Moderate decrease in GFR 30-59 4 Severe decrease in GFR 15-29 5 Kidney failure <15 (or dialysis) 2 Troponin-I testing on Plasma Separator Tubes (PST) has a known false positive rate of 0.20-0.40%. All positive troponins reflex immediately to secondary confirmatory testing. Using the [employer] DxI 800 Access Immunoassay systems, the 99th percentile upper reference limit was demonstrated to be < 0.03 ng/mL. 3 Test Performed by: [address] [id number] 4 Because ethnic data is not always readily available, this report includes an eGFR for both -Americans and non- Americans. The National Kidney Disease Education Program (NKDEP) does not endorse the use of the MDRD equation for patients that are not between the ages of 18 and 70, are , have extremes of body size, muscle mass, or nutritional status, or are non- or non-. According to the National Kidney Foundation, irrespective of diagnosis, the stage of the disease is based on the level of kidney function: Stage Description GFR(mL/min/1.73 m(2)) 1 Kidney damage with normal or decreased GFR 90 2 Kidney damage with mild decrease in GFR 60-89 3 Moderate decrease in GFR 30-59 4 Severe decrease in GFR 15-29 5 Kidney failure <15 (or dialysis) 5 REFERENCE VALUE <=1.0 (Negative) Test Performed by: [facility] [address] [place] [address] Procedures Description No Information Available Medical Devices Description No Information Available Encounters Type Date Location Provider Dx Diagnosis Office Visit 12/10/2018 Main Office Anand Lee F41.0 Panic disorder 4:30p Nava [episodic paroxysmal anxiety] F41.9 Anxiety disorder, unspecified E89.0 Postprocedural hypothyroidism Z85.850 Personal history of malignant neoplasm of thyroid Z23 Encounter for immunization Z41.8 [facility] 08/14/2018 4:00p Main Office Anand Lee M.D. R53.81 Other malaise E89.0 Postprocedural hypothyroidism Z85.850 Personal history of malignant neoplasm of thyroid M79.10 Myalgia, unspecified site R53.83 Other fatigue F34.1 Dysthymic disorder R07.9 Chest pain, unspecified Z68.1 Body mass index (BMI) 19.9 or less, adult Assessments Date Code Description Provider 12/10/2018 F41.0 Panic disorder [episodic paroxysmal anxiety] Anand Lee M.D. 12/10/2018 F41.9 Anxiety disorder, unspecified Anand Lee M.D. 12/10/2018 E89.0 Postprocedural hypothyroidism Anand Lee M.D. 12/10/2018 Z85.850 Personal history of malignant neoplasm of Anand Lee M.D. thyroid 12/10/2018 Z23 Encounter for immunization Anand Lee M.D. 12/10/2018 Z41.8 Encounter for other procedures for purposes Anand Lee M.D. other than remedying health state 08/14/2018 R53.81 Other malaise Anand Lee M.D. 08/14/2018 E89.0 Postprocedural hypothyroidism Anand Lee M.D. 08/14/2018 Z85.850 Personal history of malignant neoplasm of Anand Lee M.D. thyroid 08/14/2018 M79.10 Myalgia, unspecified site Anand Lee M.D. 08/14/2018 R53.83 Other fatigue Anand Lee M.D. 08/14/2018 F34.1 Dysthymic disorder Anand Lee M.D. 08/14/2018 R07.9 Chest pain, unspecified Anand Lee M.D. 08/14/2018 Z68.1 Body mass index (BMI) 19.9 or less, adult Anand Lee M.D. Plan of Treatment Future Appointment(s):01/24/2019 4:15 pm - Anand Lee M.D. at Main [id number]/10/2018 - Anand Lee M.D.F41.0 Panic disorder [episodic paroxysmal anxiety]New Medication:Escitalopram Oxalate 10 mg - 1/2 by mouth every day for 1 week then 1 tablet daily; for moodClonazepam 0.5 mg - 1/4-1 by mouth three times a day as needed for anxiety/panicComments:Discussed nature of panic attacks, in her case (and in retrospect) that I see this as a progression of background anxiety w/ a lot of somatic type Sxs over a long time frame, and urged her to consider treatment now to minimize the risk of continued worsening of Sxs. Discussed how panic attacks can start getting more frequent. Discussed medication options for prevention incl SSRIs, SNRIs, mirtazapine.She is agreeable to trying an SSRI. Will try escitalopram given the somewhat lower risk of S/Es. Discussed that folks w/ anxiety often need doses on the higher end. Discussed potential interaction w/ omeprazole and that this was more of a concern w/ higher doses. Discussed S/E profile, time frame before seeing any benefit. Also discussed abortive meds incl role for BDZs in spite of their sedating nature and their risk of dependence. She will try hydroxyzine prn but keep clonazepam as a 'just in case' med for severe episodes.Follow up:RTO 6-8 [id number] Anxiety disorder, unspecifiedNew Medication:Escitalopram Oxalate 10 mg - 1/2 by mouth every day for 1 week then 1 tablet daily; for moodClonazepam 0.5 mg - 1/4-1 by mouth three times a day as needed for anxiety/lrqspG77.0 Postprocedural hypothyroidismComments:Looked over info from [facility] noting potential for acid suppressant meds to inc the need for higher doses of thyroid hormone [id number] Personal history of malignant neoplasm of [id number] Encounter for immunizationComments:Encouraged flu vaccine wc was accepted. VIS provided.Z41.8 Encounter for other procedures for purposes other than remedying health state Functional Status Description No Information Available Mental Status Description No Information Available Referrals Refer to Reason for Referral Status Appt Date [facility] Healthy 27yo woman who exercises regularly Closed and vigorously and is having difficulty with high level exertion. Please consider for echo to r/o structural heart disease as cause Consult and Testing [facility] [place] [facility] [address] [phone]
[2019-01-16 17:35] LABS: ABS Eosinophils 0.1 10^3/ul (0-0.6); ABS Monocytes 0.5 10^3/ul (0-0.8); ABS Neutrophils 5.4 10^3/ul (1.5-7.7); Eosinophil % 0.8 %; Hematocrit 44 % (35-47); Hemoglobin 15.2 g/dL (12.0-16.0); Lymphocyte % 14.4 %; Mean Corpuscular HGB Conc 34 g/dL (31-36); Mean Corpuscular Hemoglobin 31 pg (27-31); Mean Corpuscular Volume 91 fL (80-97); Mean Platelet Volume 7.1 fL (7.4-10.4); Nucleated Red Blood Cells % 0.1; Platelet Count 248 10^3/uL (150-450); Red Blood Count 4.87 10^6 /uL (3.70-4.87); Red Cell Distribution Width 13 % (10-15)
[2019-01-16 17:53] LABS: Albumin 4.3 g/dL (3.2-5.2); Albumin/Globulin Ratio 1.3 (1-3); BUN/Creatinine Ratio 19.2 (8-20); Calcium 8.5 mg/dL (8.6-10.3); EGFR African American 76.3 (>60); EGFR Non-African American 63.1 (>60); Globulin 3.2 g/dL (2-4); Potassium 3.5 mmol/L (3.5-5.0); Total Bilirubin 0.4 mg/dL (0.2-1.0); Total Protein 7.5 g/dL (6.4-8.9)
[2019-01-16 18:26] LABS: TSH (Thyroid Stimulating Horm) 0.06 mcIU/mL (0.34-5.60)
--- NOTE | 2019-01-16 19:12 | ED ---
Palpitations / Dysrhythmia - HPI Summary HPI Summary: 28 year old F presenting to [facility] complains of "high resting heart rate" since this afternoon. 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 States her normal HR is 60-65. This afternoon, patient was doing work while sitting at her desk and noted HR 80-85. States that when she stood up, and walked to bathroom, and walked up stair steps , HR 120-130. States it usually takes considerable exercise for her HR to increase that high. Patient additionally complains of fatigue for a couple weeks. States she has an appointment with primary care provider on 01/20/19 for this. Additionally complains of upper abdominal pain described as dull ache, decreased appetite and increased thirst for a couple weeks. States that these sx have worsened since this afternoon. Patient went to [facility], and was referred to the ED. States she was walking across campus to meet her friend who was going to drive her to the ED but HR in the 150s and became too winded. States her sx are abnormal for her. States she hasn't been able to exercise. States her body temperature has been fluctuating, noting that her temperature is 95F after exercising. Reports chills and diaphoresis sometimes after exercising and sometimes after waking up in the morning. States that she sometimes wakes up in morning with non productive cough which resolves throughout the day. No pain/swelling in the lower extremities, fever. The patient rates the pain 5/10 in severity. Symptoms aggravated by nothing. Symptoms alleviated by nothing. Surgical hx: thyroidectomy. Hx: hypothyrodism. Takes 175 mcg levothyroxine. 1 month ago, patient had blood work done which showed hyperthyroidism after which she had her dose of levothyroxine increased to 175 mcg. States she has an appointment with primary care provider on .Takes Lexapro and oral contraception. LNMP 2.5 weeks ago. Had stress test with Dr. Qureshi which was fine. States she hikes frequently. Has had Lyme test done in the past. - History of Current Complaint Chief Complaint: EDDysrhythmPalp Time Seen by Provider: 01/16/19 19:02 Hx Obtained From: Patient Onset/Duration: Lasting Hours, Lasting Weeks, Still Present Timing: Constant Severity Currently: Moderate - 5/10 Aggravating: Nothing Alleviating: Nothing - Allergy/Home Medications Allergies/Adverse Reactions: Allergies Allergy/AdvReac Type Severity Reaction Status Date / Time Nicotinamide Adenine Allergy Severe Unknown Uncoded 01/16/19 18:52 Dinucleotide Reaction Details Home Medications: Home Medications Cetirizine* [ZyrTEC 10 MG TAB*] 10 mg PO DAILY PRN 01/16/19 [History Confirmed 01/16/19] Escitalopram * [Lexapro 10 mg (NF)] 10 mg PO DAILY 01/16/19 [History Confirmed 01/16/19] Levothyroxine TAB* [Synthroid TAB*] 175 mcg PO DAILY 01/16/19 [History Confirmed 01/16/19] Norethindrone AC-Eth Estradiol [04/07] 1 tab PO DAILY 01/16/19 [History Confirmed 01/16/19] PMH/Surg Hx/FS Hx/Imm Hx Endocrine/Hematology History: Reports: Hx Thyroid Disease - hypo Denies: Hx Diabetes Cardiovascular History: Reports: Hx Angina Denies: Hx Coronary Artery Disease, Hx Hypercholesterolemia, Hx Hypertension , Hx Myocardial Infarction, Hx Pacemaker/ICD Respiratory History: Denies: Hx Asthma, Hx Chronic Obstructive Pulmonary Disease (COPD) Psychiatric History: Reports: Hx Depression - Cancer History Cancer Type, 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 Negative: Fever Positive: Other - "high resting heart rate" Positive: Cough Positive: Other - upper abdominal pain described as dull ache, decreased appetite and increased thirst Musculoskeletal: Negative - pain/swelling in lower extremities All Other Systems Reviewed And Are Negative: Yes Physical Exam - Summary Physical Exam Summary: Appearance: Well-appearing, Well-nourished, lying in bed comfortably Skin: Warm, dry, no obvious rash Eyes: sclera anicteric, no conjunctival pallor ENT: mucous membranes moist, pharynx appears normal Neck: Supple, nontender Respiratory: Clear to auscultation, no signs of respiratory distress Cardiovascular: Normal S1, S2. No murmurs. Normal distal pulses in tibial and radial bilaterally. Abdomen: Soft, nontender, normal active bowel sounds present Musculoskeletal: Normal, Strength/ROM Intact Neurological: A&Ox3, awake and alert, mentation is normal, speech is fluent and appropriate Psychiatric: affect is normal, does not appear anxious or depressed Triage Information Reviewed: Yes Vital Signs On Initial Exam: Initial Vitals Temp Pulse Resp BP Pulse Ox 99.1 F 106 18 149/99 100 01/16/19 17:04 01/16/19 17:04 01/16/19 17:04 01/16/19 17:04 01/16/19 17:04 Vital Signs Reviewed: Yes Procedures - Sedation Patient Received Moderate/Deep Sedation with Procedure: No Diagnostics - Vital Signs Vital Signs Temp Pulse Resp BP Pulse Ox 01/16/19 17:04 99.1 F 106 18 149/99 100 - Laboratory Lab Results: Lab Results 01/16/19 01/16/19 01/16/19 Range/Units 17:24 17:27 17:27 WBC 7.0 (3.5-10.8) 10^3/uL RBC 4.87 (3.70-4.87) 10^6 /uL Hgb 15.2 (12.0-16.0) g/dL Hct 44 (35-47) % MCV 91 (80-97) fL MCH 31 (27-31) pg MCHC 34 (31-36) g/dL RDW 13 (10-15) % Plt Count 248 (150-450) 10^3/uL MPV 7.1 L (7.4-10.4) fL Neut % (Auto) 77.4 % Lymph % (Auto) 14.4 % [place] % (Auto) 7.0 % Eos % (Auto) 0.8 % Baso % (Auto) 0.4 % Absolute Neuts (auto) 5.4 (1.5-7.7) 10^3/ul Absolute Lymphs (auto) 1.0 (1.0-4.8) 10^3/ul Absolute Monos (auto) 0.5 (0-0.8) 10^3/ul Absolute Eos (auto) 0.1 (0-0.6) 10^3/ul Absolute Basos (auto) 0.0 (0-0.2) 10^3/ul Absolute Nucleated RBC 0.0 10^3/ul Nucleated RBC % 0.1 Sodium 136 (135-145) mmol/L Potassium 3.5 (3.5-5.0) mmol/L Chloride 103 (101-111) mmol/L Carbon Dioxide 25 (22-32) mmol/L Anion Gap 8 (2-11) mmol/L BUN 20 (6-24) mg/dL Creatinine 1.04 H (0.51-0.95) mg/dL Est GFR ( Amer) 76.3 (>60) Est GFR (Non-Af Amer) 63.1 (>60) BUN/Creatinine Ratio 19.2 (8-20) Glucose 99 (70-100) mg/dL Lactic Acid 0.9 (0.5-2.0) mmol/L Calcium 8.5 L (8.6-10.3) mg/dL Magnesium 2.0 (1.9-2.7) mg/dL Total Bilirubin 0.40 (0.2-1.0) mg/dL AST 16 (13-39) U/L ALT 18 (7-52) U/L Alkaline Phosphatase 30 L (34-104) U/L Troponin I 0.00 (<0.04) ng/mL Total Protein 7.5 (6.4-8.9) g/dL Albumin 4.3 (3.2-5.2) g/dL Globulin 3.2 (2-4) g/dL Albumin/Globulin Ratio 1.3 (1-3) TSH 0.06 L (0.34-5.60) mcIU/mL Result Diagrams: 01/16/19 17:27 01/16/19 17:27 Lab Statement: Any lab studies that have been ordered have been reviewed, and results considered in the medical decision making process. - Radiology CXR Radiology Interpretation Completed By: ED Physician Summary of Radiographic Findings: No acute process. Pending official report. - Ultrasound Gallbladder Ultrasound Interpretation Completed By: Radiologist Summary of Ultrasound Findings: Normal right upper quadrant ultrasound. ED physician has reviewed this report. - EKG 1712 Cardiac Rate: NL - 82 BPM EKG Rhythm: Sinus Rhythm Summary of EKG Findings: NSR at 82 BPM, P waves, QRS complex, and T waves are within normal limits, T waves and intervals are normal, no ischemic changes. This is a normal EKG. Re-Evaluation - Re-Evaluation First Eval Re-Evaluation Time: 20:26 Change: Improved Comment: updated on plan of care. agrees to have US gallbladder Course/Dx - Course Course Of Treatment: 28 year old F complains of "high resting heart rate" since this afternoon, and worsening fatigue, upper abdominal pain described as dull ache, decreased appetite, increased thirst, intermittent chills and diaphoresis , intermittent fluctuating body temperature, intermittent cough for several weeks. Hx: hypothyroidism. Upon exam, patient HR in the 90s. Bloodwork results with no significant abnormalities except for MPV 7.1, creatinine 1.04, calcium 8.5, alkaline phosphatase 30, and TSH 0.06. Lyme test ordered. An EKG shows NSR at 82 BPM, P waves, QRS complex, and T waves are within normal limits , T waves and intervals are normal, no ischemic changes. This is a normal EKG. CXR shows no acute process. US Gallbladder shows, per radiologist: Normal right upper quadrant ultrasound. Patient will be discharged home and was encouraged to follow up at her scheduled appointment with her primary care provider on 01/20/19. Because her TSH levels were low in the ED, she was instructed to decrease her dose of levothyroxine to 150 mcg until she sees her photolettering machine operator. Patient was instructed to return to Emergency Department for new or worsening symptoms. Patient understands and is agreeable to this plan. - Diagnoses Provider Diagnoses: Dyspnea, Abdominal pain Discharge ED - Sign-Out/Discharge Documenting (check all that apply): Patient Departure - Discharge - Discharge Plan Condition: Good Disposition: HOME Patient Education Materials: Abdominal Pain (ED), Dyspnea (ED) Referrals: Anand Lee MD [Primary Care Provider] - (as scheduled) Additional Instructions: The tests we ran tonight looking for serious breathing problems such as pneumonia, pulmonary embolus, pneumothorax, etc, were all negative, so at this point while we have ruled out a number of conditions the cause of your shortness of breath is not clear. It is good that you have an appointment with your regular doctor so he can assess you and see what other tests might be helpful to make a diagnosis. With respect to the abdominal pain we also ran blood tests looking for problems in the liver, gall bladder and pancreas and these were negative. The symptoms are most likely a variant of your IBS, but again Dr. Lee may want to send you for further diagnostics or perhaps a consultation with a GI specialist. The TSH was fairly low, indicating that the dose of 175 mcg may be too high, so for now go back to the 150 mcg dose until you see the photolettering machine operator. - Billing Disposition and Condition Condition: GOOD Disposition: Home - Attestation Statements Document Initiated by To: Yes Documenting Scribe: Gwendolyn Goldberg Provider For Whom To is Documenting (Include Credential): Howie Clark MD Scribmegan Attestation: I, Gwendolyn Goldberg, scribed for Howie Clark MD on 01/17/19 at 0202. Scribe Documentation Reviewed: Yes Provider Attestation: The documentation as recorded by the Gwendolyn campos accurately reflects the service I personally performed and the decisions made by me, Howie Clark MD Status of Scrry Document: Viewed
[2019-01-16 21:51] VITALS: BP 114/65
== END 2019-01-16 21:40 | disposition home or self-care (01) ==
LOC: ED 17:00
DX: R06.00 Dyspnea, unspecified (principal); R10.9 Unspecified abdominal pain; E03.9 Hypothyroidism, unspecified; Z85.850 Personal history of malignant neoplasm of thyroid; Z79.890 Hormone replacement therapy; Z79.899 Other long term (current) drug therapy
CPT/HCPCS: 36415; 71046; 76705; 80053; 83605; 83735; 84443; 84484; 85025; 85379; 86618; 93005; 99284